=== PATIENT | male | born 1940 | race Caucasian/White ===

== ENCOUNTER 2019-01-14 05:18 | Inpatient (IN) ==
--- NOTE | 2019-01-14 05:50 | PROVIDER DOCUMENTATION ---
HPI-Respiratory General - General Stated Complaint: SOB/COPD Time Seen by Provider: 01/14/19 05:34 Source: patient Allergies/Adverse Reactions: Patient Allergies Allergy/AdvReac Type Severity Reaction Status Date / Time No Known Allergies Allergy Verified 08/24/15 13:14 Home Medications: Home Medication List Medication Instructions Recorded Confirmed Last Taken Type Doxazosin Mesylate 8 mg PO HS 06/01/12 10/10/15 10/09/15 19:00 History 8 Simvastatin 40 mg PO DAILY 09/13/14 10/10/15 10/09/15 19:00 History 40 Curamin 1 each PO PRN PRN 03/10/15 10/10/15 08/28/15 14:00 History Finasteride [Proscar] 2 tab PO QHS 03/10/15 10/10/15 10/09/15 19:00 History 2 Magnesium Chloride [Magnesium Dr] 64 mg PO PRN PRN 03/10/15 10/10/15 10/08/15 History 64 Mometasone/Formoterol [Dulera 100 2 puff INH RTBID 03/10/15 10/10/15 08/28/15 21:00 History Mcg/5 Mcg Inhaler] Melatonin 5 mg PO QHS 08/24/15 10/10/15 10/06/15 History 5 Zinc [Zinc Chelated] 50 mg PO DAILY 08/24/15 10/10/15 10/08/15 History 50 Acetaminophen [Tylenol] 1,000 mg PO Q6H #0 tablet 08/30/15 10/10/15 Unknown Rx Docusate Sodium [Colace] 100 mg PO BID #0 capsule 08/30/15 10/10/15 10/08/15 Rx 100 Celecoxib [Celebrex] 200 mg PO BID #60 capsule 10/12/15 Unknown Rx Famotidine [Pepcid] 20 mg PO DAILY #0 tablet 10/12/15 Unknown Rx Oxycodone I.r. [Oxy Ir] 10 - 20 mg PO Q3H PRN PRN #90 10/12/15 Unknown Rx capsule Pregabalin [Lyrica] 75 mg PO BID #60 capsule 10/12/15 Unknown Rx Rivaroxaban [Xarelto] 10 mg PO DAILY@0600 #14 tablet 10/12/15 Unknown Rx Tramadol [Ultram] 100 mg PO Q6H #120 tablet 10/12/15 Unknown Rx - History of Present Illness-Resp Nature of Presenting Problem: Presents to the with complaints of SOB that got worse yesterday. He states that he has COPD but yesterday he noticed that he was having more difficulty breathing. FOr the past two weeks he has had some some phlegm and saw his PCP who gave him some steroids. He did give himself some breathing treatments with his last one being last night but he stated they never helped him. He quit smoking in 2009. He states that about 1 year ago he gave up using oxygen because he didnt think it was helping him and he tunred in all his equipment. He did endorse some chest pain when the SOB got worse. Denies any orthopnea. Review of Systems - Adult - REVIEW OF SYSTEMS - ADULT Constitutional: reports: see HPI Eyes: reports: no symptoms reported Ears, Nose, Mouth & Throat: reports: no symptoms reported Cardiovascular: reports: see HPI, chest pain Respiratory: reports: see HPI, cough, dyspnea on exertion, shortness of breath, wheezing Gastrointestinal: reports: no symptoms reported Genitourinary: reports: no symptoms reported Musculoskeletal: reports: no symptoms reported Integumentary: reports: no symptoms reported Neurological: reports: no symptoms reported Psychiatric: reports: no symptoms reported Endocrine: reports: no symptoms reported Hematologic/Lymphatic: reports: no symptoms reported Allergic/Immunologic: reports: no symptoms reported All Other Systems: Reviewed and Negative Past History - Adult - PAST MEDICAL HISTORY-ADULT Review of Records: reports: Old Records Reviewed Cardiovascular: reports: HTN, hyperlipidemia, other (AAA) Respiratory: reports: asthma, COPD, sleep apnea Gastrointestinal: reports: GERD Neurological: reports: TIA - PRIOR SURGERIES/PROCEDURES Surgical/Procedure History: reports: other (carotid) - IMMUNIZATION STATUS Childhood Immunizations: See Nurse Assessment Flu Vaccine: See Nurse Assessment Physical Exam-General - PHYSICAL EXAM-ADULT Initial Vital Signs Reviewed: Yes - CONSTITUTIONAL General Appearance: alert, mild distress (mild resp distress), other (hard of h earing) - EYES Eyes: PERRL/EOMI - HEAD, EARS, NOSE, MOUTH & THROAT HENMT: normocephalic/atraumatic - NECK Neck: supple, normal inspection - RESPIRATORY Respiratory: chest non-tender, respiratory distress (mild), decreased breath sounds (diffuse), accessory muscle use, wheezing (scant), increased rate. negative: crackles - CARDIOVASCULAR Cardiovascular: normal peripheral pulses, no murmur, tachycardia - GASTROINTESTINAL (ABDOMEN) Abdominal Exam: normal bowel sounds, non tender, soft, other (obese) - MUSCULOSKELETAL Back Exam: normal inspection Extremity: normal range of motion, no pedal edema - SKIN Integumentary: normal color, warm/dry - NEUROLOGIC Neurologic: grossly normal - PSYCHIATRIC Psych/Mental Status: normal mood/affect, oriented x 3 - HEART Score HEART Score: History: Slightly Suspicious HEART Score: ECG: Non-Specific Repolarization Disturbance/LBBB/PM HEART Score: Age: > or = 65 Years HEART Score: Risk Factors for Atherosclerotic Disease: 1 or 2 Risk Factors HEART Score: Troponin: < or = Normal Limit Total HEART Score:: 4 Progress - PLAN OF CARE/RESULTS Progress/Plan/Lab Results: Vital Signs - 8 hr 01/14/19 05:38 01/14/19 05:57 Temperature 98.7 F Pulse Rate 98 H 97 H Respiratory Rate 20 20 Blood Pressure 153/88 O2 Sat by Pulse Oximetry 99 90 L Laboratory Results - last 24 hr 01/14/19 01/14/19 01/14/19 05:45 05:45 05:45 WBC 12.77 H RBC 4.82 Hgb 14.2 Hct 45.2 MCV 93.8 MCH 29.5 MCHC 31.4 L RDW Std Deviation 14.6 H Plt Count 234 MPV 9.5 Immature Gran % (Auto) 0.2 Neut % (Auto) 82.1 H Lymph % (Auto) 9.3 L [place] % (Auto) 6.9 Eos % (Auto) 1.2 Baso % (Auto) 0.3 Immature Gran # (Auto) 0.03 Neut # (Auto) 10.48 H Lymph # (Auto) 1.19 L [place] # (Auto) 0.88 H Eos # (Auto) 0.15 Baso # (Auto) 0.04 PT INR PTT (Actin FS) Specimen Type Sample Site pH pCO2 pO2 HCO3 Base Excess Oxyhemoglobin ABG O2 Sat (Calculated) ABG O2 Saturation ABG Carboxyhemoglobin ABG Methemoglobin Armando Test A-a O2 Difference Total Hemoglobin Lactate Liter Flow Blood Gas Modality FiO2 % Sodium 135 L Potassium 4.4 Chloride 101 Carbon Dioxide 26 Anion Gap 8 BUN 8 Creatinine 0.9 Estimated GFR/1.73 m2 > 60 BUN/Creatinine Ratio 9 Glucose 117 H Calculated Osmolality 269 Calcium 8.8 Total Bilirubin 0.51 AST 19 ALT 17 Alkaline Phosphatase 75 Troponin T Fxn-X-Fgmswbwyrdt Pept 537 H Total Protein 6.5 Albumin 3.7 Globulin 2.8 Albumin/Globulin Ratio 1.3 01/14/19 01/14/19 01/14/19 05:45 05:45 05:51 WBC RBC Hgb Hct MCV MCH MCHC RDW Std Deviation Plt Count MPV Immature Gran % (Auto) Neut % (Auto) Lymph % (Auto) [place] % (Auto) Eos % (Auto) Baso % (Auto) Immature Gran # (Auto) Neut # (Auto) Lymph # (Auto) [place] # (Auto) Eos # (Auto) Baso # (Auto) PT 13.8 INR 1.05 PTT (Actin FS) 30.2 Specimen Type ARTERIAL Sample Site R RADIAL pH 7.40 pCO2 44 pO2 82 HCO3 26.4 H Base Excess 2.0 Oxyhemoglobin 95.6 ABG O2 Sat (Calculated) 19.4 ABG O2 Saturation 98.3 ABG Carboxyhemoglobin 1.90 ABG Methemoglobin 0.9 Armando Test YES A-a O2 Difference 120.0 Total Hemoglobin 14.4 Lactate 0.90 Liter Flow 4.0 Blood Gas Modality CANNULA FiO2 % 36.0 Sodium Potassium Chloride Carbon Dioxide Anion Gap BUN Creatinine Estimated GFR/1.73 m2 BUN/Creatinine Ratio Glucose Calculated Osmolality Calcium Total Bilirubin AST ALT Alkaline Phosphatase Troponin T < 0.010 [id number] Pept Total Protein Albumin Globulin Albumin/Globulin Ratio Orders Category Date Time Status CHEST-PORTABLE [RAD] Stat Exams 01/14/19 05:51 Taken ABG [RESP] Routine Lab 01/14/19 05:51 Completed CBC WITH ELECTRONIC DIFF [HEME] Stat Lab 01/14/19 05:45 Completed COMPREHENSIVE METABOLIC PANEL [CHEM] Stat Lab 01/14/19 05:45 Completed PRO B-NATRIURETIC PEPTIDE Stat Lab 01/14/19 05:45 Completed PROTIME WITH INR [COAG] Stat Lab 01/14/19 05:45 Completed PTT [COAG] Stat Lab 01/14/19 05:45 Completed TROPONIN T Stat Lab 01/14/19 05:45 Completed Albuterol 2.5MG/Ipratrop 0.5MG [Duoneb (A & A)] Med 01/14/19 05:51 Discontinued 9 ml INH NOW ONE Aspirin Med 01/14/19 05:51 Discontinued 324 mg PO NOW ONE Budesonide [Pulmicort] Med 01/14/19 05:51 Discontinued 0.5 mg INH NOW ONE Methylprednisolone Sod Succ [Solu-Medrol] Med 01/14/19 05:51 Discontinued 125 mg IV NOW ONE Aerosol Treatments Routine Oth 01/14/19 05:52 Completed Aerosol Treatments Stat Oth 01/14/19 05:52 Completed EKG [EKG] Stat Ther 01/14/19 05:26 Ordered Result Diagrams: 01/14/19 05:45 01/14/19 05:45 - EKG 1 Time of EKG reading by physician:: 05:34 EKG Read and Signed by:: Terra Fam EKG Interpretation (*Must complete 3 of following elements*): Abnormal Rate: 100 Rhythm: NSR QRS: LBB Prior EKG Comparison: changes noted (2015, new LBBB) - XRAY 1 XRAY Study: Chest Impression: Abnormal (COPD) Comparison with other Films: no changes - CONSULTS/PCP/HOSPITALIST Notification #1 *Consult/PCP/Hospitalist*: Kristin TECHNICAL ACCOUNT MANAGER for Dr Garcia Time Discussed: 07:46 Consult Disposition: Will see in ED, Admit - CHANGE OF SHIFT REPORT (ED Provider) 1 Report Given and Care Transferred to:: Dr Reddy Time of Transfer: 07:00 Items Pending: Other (patient reeval following treatments, walk test, likely admit) Departure - Departure Date of Disposition Decision: 01/14/19 Time of Disposition Decision: 07:46 DIAGNOSIS: COPD exacerbation, Hypoxia Disposition: ADMITTED INPATIENT 09 Certified Medical Emergency: Emergent Condition: Fair Referrals and Follow-Ups: María Elena Guardado MD [Primary Care Provider] - - Critical Care Note This patient required my direct & personal management of CC.: Yes Total Time (mins): 35 Critical Care Statement: This patient required my direct personal management to treat or rule out processes, the absence of which, could potentiallly result in sudden, clinically significant life or limb threatening deterioration. Attestation - Physician/ SANDRA Attestation Patient care was provided by Advanced Practice Provider:: No The physician spent face to face time with patient:: Yes Advanced Practice Provider documentation review:: Supervising physician onsite and consulted in the evaluation and care of this patient. The physician did have a face to face encounter with the patient.
[2019-01-14] MEDS ORDERED: SOLU-MEDROL IV ONE (05:51)
[2019-01-14] MEDS ORDERED: PULMICORT INH ONE (05:51)
[2019-01-14] MEDS ORDERED: ASPIRIN PO ONE (05:51)
[2019-01-14] MEDS ORDERED: DUONEB (A & A) INH ONE (05:51)
[2019-01-14 06:04] LABS: BASO# 0.04 X1000 (0.0-0.2); BASO% 0.3 % (0.0-0.8); EOS# 0.15 X1000 (0.0-0.7); EOS% 1.2 % (0.0-10.0); HEMATOCRIT 45.2 % (42.0-52.0); HEMOGLOBIN 14.2 g/dL (14.0-18.0); IMM GRAN# 0.03 X1000 (0.0-0.04); IMM GRAN% 0.2 % (0.0-0.5); LYMPH# 1.19 X1000 (1.2-3.4); LYMPH% 9.3 % (20.5-51.1); MCH 29.5 PG (27-31); MCHC 31.4 g/dL (33-37); MCV 93.8 FL (81-99); MONO# 0.88 X1000 (0.11-0.59); MONO% 6.9 % (1.7-9.3); MPV 9.5 FL (7.4-10.4); NEUT# 10.48 X1000 (1.4-6.5); NEUT% 82.1 % (42.2-75.2); PLT 234 X1000 (130-400); RBC 4.82 XMIL (4.7-6.1); RDW 14.6 % (11.5-14.5); WBC 12.77 X1000 (4.8-10.8)
[2019-01-14 06:11] LABS: INR 1.05; PROTIME 13.8 Seconds (11.0-16.0)
[2019-01-14 06:12] LABS: PTT 30.2 Seconds (22.3-41.8)
[2019-01-14 06:15] LABS: ALLEN TEST YES; BLOOD TYPE ARTERIAL; HCO3-(ACT) 26.4 mmoll (20.0-26.0); METHB 0.9 % (0.0-1.5); MODALITY CANNULA; O2(CT) 19.4 mL/dL (15.0-23.0); O2HB 95.6 % (95.0-99.0); PCO2(98.6) 44 mmHg (35-45); PO2(98.6) 82 mmHg (60-100); SAMPLE BLOOD; SAO2 98.3 % (95.0-100.0); THB 14.4 g/dL (11.5-17.4)
[2019-01-14 06:33] LABS: AGAP 8; ALB/GLOB RATIO 1.3; ALBUMIN 3.7 g/dL (3.5-5.0); ALKALINE PHOSPHATASE 75 U/L (32-122); BUN 8 mg/dL (8-22); CALCIUM 8.8 mg/dL (8.8-10.2); CHLORIDE 101 mmol/L (98-107); COSMO 269; CREATININE 0.9 mg/dL (0.7-1.2); ESTIMATED GFR > 60; GLUCOSE 117 mg/dL (70-104); GOT 19 U/L (10-34); GPT 17 U/L (10-44); POTASSIUM 4.4 mmol/L (3.5-5.1); SODIUM 135 mmol/L (136-145); TCO2 26 mmol/L (25-35); TOTAL BILIRUBIN 0.51 mg/dL (0.20-1.00); TOTAL PROTEIN 6.5 g/dL (6.3-8.3)
--- NOTE | 2019-01-14 07:23 | Diag Imaging Result Doc PS360 ---
EXAM: CHEST-PORTABLE INDICATION: SOB TECHNIQUE: One view COMPARISON: 07/11/2016 FINDINGS: There is trace linear scarring at the left lung base, stable. The lungs are grossly clear, otherwise. There is no discrete pleural fluid collection or pneumothorax. The cardiomediastinal silhouette and central vasculature are grossly unremarkable. IMPRESSION: Trace left basilar linear scarring. No definite acute pathology, otherwise. Electronically signed by Hernan Burgess 01/14/2019 7:21 AM
--- NOTE | 2019-01-14 07:38 | EKG Report ---
Test Performed on : 01/14/2019 05:33:40 AM Test Reason : SOB Blood Pressure : / mmHG Vent. Rate : 100 BPM Atrial Rate : 100 BPM P-R Int : 168 ms QRS Dur : 158 ms QT Int : 390 ms P-R-T Axes : 071 031 143 degrees QTc Int : 503 ms Normal sinus rhythm. Left bundle branch block Abnormal ECG When compared with ECG of 14-JAN-2019 05:24, (Unconfirmed) No significant change was found Unconfirmed Result
[2019-01-14] MEDS ORDERED: TYLENOL PO PRN (09:03)
[2019-01-14] MEDS ORDERED: ROCEPHIN 1 GM in NS 50 ML IV SCH (09:03)
--- NOTE | 2019-01-14 09:04 | HISTORY AND PHYSICAL ---
PRIMARY CARE PHYSICIAN: Dr. Guardado. CHIEF COMPLAINT: Shortness of breath with a productive cough over the past 2 weeks that has progressively worsened. HISTORY OF PRESENTING ILLNESS: This is a 78-year-old male who presents to [facility] with complaints of worsening shortness of breath over the past 2 weeks with a productive cough. When he arrived to the emergency room, he had an O2 saturation on room air of 89%. States he saw his primary care physician about a week or so ago who gave him some steroids. He did continue his breathing treatments, but states that about a year ago he gave up using his oxygen because he did not think it was helping, so he turned the equipment in. He is a former smoker but quit approximately 10 years ago. He was placed on O2 at 4 L via nasal cannula saturating 98%. His chest x-ray showed no definite acute pathology. White count was 12.77, but again, he has had some steroid so that maybe one of the reasons it is mildly elevated. He is noted to be wheezing throughout his entire lung jimenez so he will be admitted for an acute chronic obstructive pulmonary disease exacerbation for further evaluation and treatment. PAST MEDICAL HISTORY: COPD, hypertension, hyperlipidemia, AAA, GERD, sleep apnea, TIA, and BPH. PAST SURGICAL HISTORY: Left carotid endarterectomy, tonsil and adenoidectomy, bilateral cataract repair, left total knee arthroscopy, and a AAA repair. FAMILY HISTORY: Reviewed and noncontributory. 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 He is a former smoker but been quit 10+ years. Denies any alcohol or illicit drug use. ALLERGIES: He has no known drug allergies. HOME MEDICATIONS: A current list will need to be obtained, reconciled, reviewed and restarted when appropriate. We will place an order for nursing to update and confirm home medications. LABORATORY DATA: Showed a white blood cell count of 12.77, hemoglobin 14.2, hematocrit 45.2, platelets 234,000. PT and INR of 13.8 and 1.05. ABG with a pH of 7.40, pCO2 of 44, PO2 82, bicarb 26.4. This was on 4 L via nasal cannula. Sodium 135, potassium 4.4, chloride 101, CO2 26, BUN of 8, creatinine 0.9, glucose 117. Troponin was negative. ProBNP of 537. Chest x-ray showed trace left basilar linear scarring but no definite acute pathology otherwise. EKG showed normal sinus rhythm at 100. REVIEW OF SYSTEMS: He denied any fever, chills, blurred vision, dizziness, chest pain. He did have a productive cough of thick white phlegm, shortness of breath that was worsened with exertion. Denied any abdominal pain, constipation, diarrhea, burning or hurting with urination. PHYSICAL EXAMINATION: On arrival he had a temperature of 98.7 degrees, pulse 98, respirations 20, blood pressure 153/88, was saturating 89% on room air on arrival. Placed on 2-1/2 L of nasal cannula and was at 90. Bumped him up to 4 L now saturating 98%. GENERAL: This is a 78-year-old male who is lying in the bed and answers questions appropriately. HEENT: Normocephalic, atraumatic. Normal ENT inspection. Oropharynx and nares are clear. EYES: Pupils are equal, round, reactive to light and accommodation. Extraocular movements are intact. NECK: Normal inspection, normal range of motion. LUNGS: With wheezing, primarily expiratory throughout entire posterior lung jimenez. Equal lung expansion. Chest wall movement noted. O2 via nasal cannula is currently in use. HEART: Regular rate and rhythm. No murmurs, rubs, or gallops. ABDOMEN: Soft, nontender, nondistended. Bowel sounds are present x4 quadrants. MUSCULOSKELETAL: He had 5/5 strength x4 extremities. NEUROLOGICAL: The cranial nerves 2-12 appear grossly intact. ASSESSMENT: 1. Acute chronic obstructive pulmonary disease exacerbation. 2. Hypoxemia. 3. Hypertension. 4. Gastroesophageal reflux disease. PLAN: He will be admitted to the medical unit. Placed on telemetry, O2 per protocol, incentive spirometry, turn, cough and deep breathe q.2 hours. Healthy heart diet. SCDs for DVT prophylaxis. We will place him on Rocephin 1 gram IV q.24. Azithromycin 500 IV q.24, Solu-Medrol 80 mg IV q.8 and will wean as he improves. DuoNeb q.4 hours. We will update and confirm home medications and restart those as appropriate. Recheck a CBC, BMP in the a.m. Further orders after seen by attending. Dictated by JENI Diego for Gamaliel Garcia MD cc: JENI Diego MD Kathy J. Sparacino, MD
[2019-01-14] MEDS ORDERED: ZITHROMAX 500 MG/NS 500 MG/250 ML IVPB IV SCH (10:00)
[2019-01-14] MEDS: DUONEB (A & A) INH SCH ×3 (11:08→19:37)
[2019-01-14] MEDS ORDERED: SOLU-MEDROL IV SCH (14:00)
[2019-01-14] MEDS ORDERED: SLOW-MAG PO PRN (18:22)
[2019-01-14] MEDS ORDERED: PROSCAR PO SCH (21:00)
[2019-01-14] MEDS ORDERED: MELATONIN PO SCH (21:00)
[2019-01-14] MEDS ORDERED: CARDURA PO SCH (21:00)
[2019-01-14] MEDS ORDERED: XANAX PO SCH (21:00)
--- NOTE | 2019-01-14 21:00 | HISTORY AND PHYSICAL ---
ADDENDUM: I have seen and examined Mr. Tovar today. Mr. Tovar is known to have COPD who has been getting remarkably short of breath associated with cough, became worse last night, almost unable to sleep, came to the emergency department today, was initially treated but then did not resolve so got admitted because of COPD exacerbation. PHYSICAL EXAMINATION: Remarkable for air entry to the lungs is bilaterally reduced. There is prolonged expiratory phase of respiration, and there is diffuse bilateral end expiratory wheezing. On presenting at some point, Mr. Tovar's saturation was about 90%. LABORATORIES: Current lab works have also been reviewed. ABG was unremarkable, but this was on FiO2 of 36%. Chest x-ray showed trace left basilar linear scarring. No definite acute pathology. ASSESSMENT: 1. Acute hypoxemic respiratory failure. 2. Chronic obstructive pulmonary disease exacerbation. 3. Hypertension. 4. History of abdominal aortic aneurysm. PLAN: We are going to continue with the antimicrobial coverage, bronchodilation and steroids. The patient has been started back on his home medications, and we will consult Pulmonary Medicine to assist with his management. Of note, Mr. Tovar told me that he has an appointment next month with a site safety manager in [place] as outpatient. cc: MD JENNIFER Barajas
[2019-01-14 21:41] VITALS: BP 129/61
[2019-01-15] MEDS ORDERED: ZOCOR PO SCH (09:00)
[2019-01-15] MEDS ORDERED: PEPCID PO SCH (09:00)
[2019-01-15] MEDS ORDERED: ASPIRIN PO SCH (09:00)
== END 2019-01-14 22:00 | disposition left against medical advice (07) | DRG 190 ==
LOC: ED 05:18 → EDIPHOLD 08:05 → 3N 13:53
PROVIDERS: ATTEND Internal Medicine